=== PATIENT | female | born 1990 | race American Indian/Alaskan Native ===

== ENCOUNTER 2018-12-18 19:22 | Emergency (ER) | payer OTHER ==
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
[2018-12-18 22:45] VITALS: BP 126/66; PULSE 66; RESP 18; TEMP 98.6
[2018-12-18 23:01] VITALS: O2SAT 99
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
== END 2018-12-18 23:01 | disposition home or self-care (01) ==
LOC: H.ER 19:22
DX: S82.402A Unspecified fracture of shaft of left fibula, initial encounter for closed fracture (principal); S80.12XA Contusion of left lower leg, initial encounter; V03.00XA Pedestrian on foot injured in collision with car, pick-up truck or van in nontraffic accident, initial encounter; M25.512 Pain in left shoulder